=== PATIENT | male | born 1985 | race Caucasian/White ===

== ENCOUNTER 2022-04-25 10:49 | Emergency (ER) | payer OTHER, SELFPAY ==
[2022-04-25 10:59] VITALS: BP 172/96; PULSE 80; RESP 18; TEMP 36.2; O2SAT 100; BMI 41.8
--- NOTE | 2022-04-25 11:08 | CRLHL7_ITS ---
For Patients: As a result of the Century Cures Act, medical imaging exams and procedure reports are released immediately into your electronic medical record. You may view this report before your referring provider. If you have questions, please contact your health care provider. INDICATION: Head injury. TECHNIQUE: CT head without contrast. COMPARISON: None. FINDINGS: CSF spaces: Within normal limits for age. Brain parenchyma and extra-axial spaces: The donaldson-white differentiation is normal. No sign of mass, hemorrhage, or midline shift. No extra-axial fluid collection. Skull base and calvarium: Vertex scalp hematoma. The visualized paranasal sinuses and mastoid air cells demonstrate no acute or significant findings. The visualized orbits are grossly unremarkable. No skull fractures. IMPRESSION: No acute intracranial abnormality. Please note that all CT scans at this facility use dose modulation, iterative reconstruction, and/or weight-based dosing when appropriate to reduce radiation dose to as low as reasonably achievable. Dictated by Reymundo Graves MD @ 04/25/2022 12:49:57 PM (Electronically Signed)
--- NOTE | 2022-04-25 11:11 | ED.NURSE ---
Dr. Bermudez in with patient for exam.
--- NOTE | 2022-04-25 11:15 | CRLHL7_ITS ---
For Patients: As a result of the Century Cures Act, medical imaging exams and procedure reports are released immediately into your electronic medical record. You may view this report before your referring provider. If you have questions, please contact your health care provider. Indication: Head injury, LOC Technique: Noncontrast axial CT of the cervical spine with coronal and sagittal reformats are provided. Comparison: No prior studies available for comparison at this institution. Findings: The overall stature, alignment of the cervical spine is within normal limits. No fractures. The prevertebral soft tissues, cervical airway, dens and lateral masses are within normal limits. No aggressive osseous lesion. No significant spinal canal stenosis or neural foramen narrowing. Impression: No radiographic evidence of acute osseous injury. Please note that all CT scans at this facility use dose modulation, iterative reconstruction, and/or weight-based dosing when appropriate to reduce radiation dose to as low as reasonably achievable. Dictated by Moshe Eli MD @ 04/25/2022 1:15:51 PM (Electronically Signed)
[2022-04-25 11:20] VITALS: BP 162/94; PULSE 82; RESP 18; O2SAT 98
--- NOTE | 2022-04-25 11:20 | ED.GENADULT ---
HPI - General Adult General Date Seen: 04/25/22 Chief complaint: Head Injury/Pain Stated complaint: Fell, lost consciousness Time Seen by Provider: 04/25/22 11:09 Source: patient Mode of arrival: ambulatory History of Present Illness HPI narrative: Patient is a 37-year-old male who was at work, slipped on the ice and hit his head. Bystanders report that he did have loss of consciousness, reportedly for several minutes. He denies any significant headache, nausea or vomiting. He feels well at this point aside from a lump on the back of his head. He does have some pain in the muscles of his neck, he says as if he has been exercising his muscles. He does not have any pain in midline of his neck. He denies any other injuries or complaints. He does not take any medications, general health is otherwise good. Related Data Home Medications Medication Instructions Recorded Confirmed No Known Home Medications 04/25/22 04/25/22 Allergies Allergy/AdvReac Type Severity Reaction Status Date / Time No Known Drug Allergies Allergy Verified 04/25/22 11:05 Review of Systems Status of ROS: Reports: 6 or more systems reviewed and unremarkable except as noted in History and below [facility] Social History Do you use any of these nicotine containing products: None How often do you have a drink containing alcohol: never AUDIT-C Alcohol total score: 0 Non-prescribed substance use: denies use Exam Narrative: Exam Narrative: Vital signs as noted above. In general, an alert, well-appearing patient. GCS 15. Head: Normocephalic. Large fluctuant hematoma noted on the upper occiput. Otherwise nontender scalp. No laceration. Eyes: Pupils are equal reactive. Extraocular movements are full. Conjunctivae are normal. ENT: Mucous membranes are moist. Throat is normal. Dentition intact. TMs normal. No hemotympanum. No bony facial trauma. Neck: Supple without lymphadenopathy. Nontender to palpation in the midline. Heart: Regular rate and rhythm. No murmur or rub. Lungs: Clear bilaterally. No increased work of breathing, crackles or wheezes. Abdomen: Soft and nontender. No organomegaly. Back: Nontender to palpation. Extremities: Well perfused. No edema. No calf tenderness. Pulses intact. Neurologic: Patient is alert and oriented to person and place. Speech is fluent. Face is symmetric. Moves all extremities equally. Affect: Normal. Skin: Warm and dry. Well perfused. Const: Vital Signs, click to edit/add: Vital Signs - 24 hr 04/25/22 10:59 04/25/22 11:20 04/25/22 11:30 Temperature 97.2 F L Pulse Rate [Right Pulse Oximeter] 80 82 83 Respiratory Rate 18 18 18 Blood Pressure [Ri ght Upper Arm] 172/96 H 162/94 H 162/100 H Pulse Oximetry 100 98 99 Oxygen Delivery Me thod Room Air Room Air 04/25/22 11:40 04/25/22 12:00 04/25/22 13:00 Temperature Pulse Rate [Right Pulse Oximeter] 83 78 69 Respiratory Rate 18 18 18 Blood Pressure [Ri ght Upper Arm] 162/95 H 153/88 H 153/88 H Pulse Oximetry 99 99 99 Oxygen Delivery Me thod Room Air Room Air Documenting provider has reviewed patient's vital signs: yes Course Course Hospital Course: On arrival, patient was evaluated as a trauma. He went over for CT scan of the head and cervical spine, by my review these did not show evidence of acute findings. Final radiology read of both the head and cervical spine were negative. He is feeling well at this time. Continues to have some soreness around hematoma but otherwise has no complaints. Discussed he will likely have some muscle soreness in the cervical spine tomorrow this should gradually improve over the next several days. He can use some ice on the hematoma, ibuprofen or Tylenol as needed. I did give him a note to be off of work today. He continues to deny other injuries or complaints. Hemodynamically stable. He will be discharged home, follow up as needed if he has symptoms of concussion that persists beyond the next few weeks. Vital Signs Vital signs: Initial Vital Signs Temperature 97.2 F L 04/25/22 10:59 Temperature Source Temporal Artery Scan 04/25/22 10:59 Pulse Rate 80 04/25/22 10:59 Respiratory Rate 18 04/25/22 10:59 Blood Pressure 172/96 H 04/25/22 10:59 Blood Pressure Mean 121 04/25/22 10:59 Blood Pressure Position Sitting 04/25/22 10:59 Pulse Oximetry 100 04/25/22 10:59 Oxygen Delivery Method 04/25/22 10:59 Vital Signs Temperature 97.2 F L 04/25/22 10:59 Pulse Rate 80 04/25/22 10:59 Respiratory Rate 18 04/25/22 10:59 Blood Pressure 172/96 H 04/25/22 10:59 Pulse Oximetry 100 04/25/22 10:59 Oxygen Delivery Method 04/25/22 10:59 Temperature 97.2 F L 04/25/22 10:59 Pulse Rate 69 04/25/22 13:00 Respiratory Rate 18 04/25/22 13:00 Blood Pressure 153/88 H 04/25/22 13:00 Pulse Oximetry 99 04/25/22 13:00 Oxygen Delivery Method 04/25/22 13:00 Discharge Plan Discharge Clinical Impression: Hematoma of scalp, Concussion with loss of consciousness Patient Disposition: Home, Self-Care Condition: Stable Instructions: Concussion (ED), Scalp Contusion in Adults (ED) Additional Instructions: Ibuprofen or Tylenol as needed. You may have symptoms such as headache, nausea, fogginess, or you may have none of these symptoms. You can use ice on the swelling in your head, this will resolve gradually over the next couple of weeks. If you have symptoms that persist beyond the next several weeks, follow up with primary care. If you have severe headache, vomiting, confusion etcetera, return for re-evaluation. CT scan of your head and neck are normal today. Muscle soreness in your neck is normal and will likely be worse tomorrow, should improve over the next few days after that. Ibuprofen or Tylenol, ice as needed for neck pain. Prescriptions: No Action No Known Home Medications Follow Up/Referrals: Provider,Not a Local [Primary Care Provider] - Stand Alone Forms: [facility] Instructions
[2022-04-25 11:30] VITALS: BP 162/100; PULSE 83; RESP 18; O2SAT 99
[2022-04-25 11:40] VITALS: BP 162/95; PULSE 83; RESP 18; O2SAT 99
[2022-04-25 12:00] VITALS: BP 153/88; PULSE 78; RESP 18; O2SAT 99
[2022-04-25 13:00] VITALS: BP 153/88; PULSE 69; RESP 18; O2SAT 99
== END 2022-04-25 13:43 | disposition home or self-care (01) ==
PROVIDERS: Emergency Provider Emergency Medicine
DX: S00.03XA Contusion of scalp, initial encounter (principal); S06.0X1A Concussion with loss of consciousness of 30 minutes or less, initial encounter; W00.0XXA Fall on same level due to ice and snow, initial encounter; Y99.0 Civilian activity done for income or pay
CPT/HCPCS: 70450; 72125; 99284; 99291